=== PATIENT | female | born 1960 | race Caucasian/White ===

== ENCOUNTER 2017-03-11 04:51 | Emergency (ER) | payer BC ==
[~2017-03-11] VITALS: Ht 152.4 cm; Wt 79.4 kg
[~2017-03-11 04:51] MED LIST: LISI2.5T PO; LORA5SOL7 PO; OMEP20CA5 PO; TRIA1CAP3 PO
[2017-03-11] MEDS ORDERED: COLC0.6T34 PO (05:13)
--- NOTE | 2017-03-11 05:14 | PHYS DOC ---
Past Medical History Past Medical History: GERD, Hypertension, Other Additional Past Medical Histor: Seasonal allergies. Past Surgical History: Appendectomy, Hysterectomy, Other Additional Past Surgical Histo: Dental surgery. Alcohol Use: Occasionally Drug Use: None Adult General Chief Complaint Chief Complaint: TOE PROBLEM HPI HPI 57-year-old female presenting to the emergency department today with right monoarticular arthritis in the first metatarsal joint with pain and mild erythema. Patient denies history of gout. She denies any fevers or chills. She denies any recent trauma. The pain is moderate intermittent nonradiating worse with walking and without alleviating factors. She's been taking ibuprofen at home last took it last night. Review of systems is negative for fevers chills ankle pain or recent trauma. All other review of systems is negative unless otherwise noted in history of present illness. ED course: 57-year-old female presenting with unilateral monoarticular arthritis of the first metatarsal phalangeal joint. Symptomatology very strongly suggestive of acute gout. On physical examination the patient is mild erythema. 2 second cap refill with normal neurovascular status. Patient given colchicine in the emergency department. X-ray obtained and reviewed by myself shows no obvious fracture or deformity. Patient was in discharged home to follow -up with her primary care doctor. The patient was then discharged home in stable condition to follow up with their primary care physician over the next 2- 3 days. They were to return if their symptoms worsened or if they were concerned for any reason. [id number] discharge instructions and return precautions were given. Patient's questions were answered to their satisfaction. Patient is comfortable plan. Review of Systems Review of Systems SEE ABOVE. Current Medications Current Medications Current Medications Medications (Trade) Dose Ordered Sig/Tiffanie Start Time Stop Time Status Last Admin Dose Admin Colchicine (Colcrys) 1.2 mg 1X ONCE 03/11/17 05:15 03/11/17 05:16 DC 03/11/17 05:12 1.2 MG Allergies Allergies Allergies Coded Allergies Type Severity Reaction Last Updated Verified morphine Adverse Reaction Intermediate nausea and vomiting 01/25/15 Yes Physical Exam Physical Exam SEE ABOVE Constitutional: Well developed, well nourished, no acute distress, non-toxic appearance. [] HENT: Normocephalic, atraumatic, bilateral external ears normal, oropharynx moist, no oral exudates, nose normal. [] Eyes: PERRLA, EOMI, conjunctiva normal, no discharge. [] Neck: Normal range of motion, no tenderness, supple, no stridor. [] Cardiovascular:Heart rate regular rhythm, no murmur [] Lungs & Thorax: Bilateral breath sounds clear to auscultation [] Abdomen: Bowel sounds normal, soft, no tenderness, no masses, no pulsatile masses. [] Skin: Warm, dry, no erythema, no rash. [] Back: No tenderness, no CVA tenderness. [] Extremities: SEE ABOVE Neurologic: Alert and oriented X 3, normal motor function, normal sensory function, no focal deficits noted. [] Psychologic: Affect normal, judgement normal, mood normal. [] Current Patient Data Vital Signs Vital Signs Date Time Temp Pulse Resp B/P (MAP) Pulse Ox O2 Delivery O2 Flow Rate FiO2 03/11/17 05:02 98.4 70 18 96 Room Air 98.4 EKG EKG [] Radiology/Procedures Radiology/Procedures [] Course & Med Decision Making Course & Med Decision Making Pertinent Labs and Imaging studies reviewed. (See chart for details) [] Dragon Disclaimer Dragon Disclaimer This electronic medical record was generated, in whole or in part, using a voice recognition dictation system. Departure Departure Impression: Primary Impression: Gout attack Additional Impression: Gout Disposition: 01 HOME, SELF-CARE Condition: STABLE Referrals: BETH WHITE MD (PCP) Patient Instructions: Gout, [id number] Additional Instructions: Thank you for allowing us to participate in your care today. Followup with your primary care physician in 3 days if your symptoms do not improve. Call your Primary Doctor tomorrow and inform them of your visit today. If you do not have a primary care provider you can ask for a list of our primary care providers. Return to the emergency department you have any new or concerning findings. This should be evaluated by the primary care physician and any necessary consulting services for continued management within a few days after discharge. Return to emergency room if you have any new or concerning symptoms including but not limited to fever, chills, nausea, vomiting, intractable pain, any new rashes, chest pain, shortness of air, uncontrolled bleeding, difficulty breathing, and/or vision loss. Scripts Colchicine (COLCRYS) 0.6 Mg Tablet 1 TAB PO DAILY, #10 TAB 0 Refills Prov: CLAUDIA DSOUZA MD 03/11/17 Problem Qualifiers CLAUDIA DSOUZA MD Mar 11, 2017 05:14
[2017-03-11] MEDS ORDERED: COLCHICINE 0.6 MG TABLET PO ONE (05:15)
[2017-03-11 05:29] VITALS: BP 168/74
--- NOTE | 2017-03-11 07:31 | RAD ---
Indication pain. No history of injury. AP oblique and lateral views targeted to the left toes were obtained. No bony abnormality is seen
== END 2017-03-11 05:29 | disposition home or self-care (01) ==
LOC: ER 04:51
DX: M10.9 Gout, unspecified (principal); K21.9 Gastro-esophageal reflux disease without esophagitis; I10 Essential (primary) hypertension
CPT/HCPCS: 73660; 99284

== ENCOUNTER 2021-05-10 05:42 | Emergency (ER) | payer SELFPAY ==
[~2021-05-10] VITALS: Ht 152.4 cm; Wt 72.0 kg
[~2021-05-10 05:42] MED LIST changes: +COLC0.6T34 PO; -LISI2.5T PO; +LISI2.5T12 PO; +LORA10TA68 PO; +OMEP20TA63 PO
[2021-05-10 06:07] LABS: BASO # 0.1 x10^3/uL (0.0-0.2); BASO % 1 % (0-3); EOS # 0.2 x10^3/uL (0.0-0.7); EOS % 3 % (0-3); HEMATOCRIT 39.5 % (36.0-47.0); HEMOGLOBIN 12.6 g/dL (12.0-15.5); LYMPH # 3.6 x10^3/uL (1.0-4.8); LYMPH % 49 % (24-48); MEAN CORPUSCULAR HEMOGLOBIN 30 pg (25-35); MEAN CORPUSCULAR HGB CONC 32 g/dL (31-37); MEAN CORPUSCULAR VOLUME 93 fL (79-100); MONO # 0.6 x10^3/uL (0.0-1.1); MONO % 8 % (0-9); NEUT # 2.8 x10^3/uL (1.8-7.7); NEUT % 38 % (31-73); PLATELET COUNT 310 x10^3/uL (140-400); RED BLOOD COUNT 4.26 x10^6/uL (3.50-5.40); RED CELL DISTRIBUTION WIDTH 15.5 % (11.5-14.5); WHITE BLOOD COUNT 7.4 x10^3/uL (4.0-11.0)
--- NOTE | 2021-05-10 06:08 | PHYS DOC ---
Past Medical History Past Medical History: GERD, Hypertension, Other Additional Past Medical Histor: Seasonal allergies. (NU GUILLENTonya Burris DO) Past Surgical History: Appendectomy, Hysterectomy, Other Additional Past Surgical Histo: Dental surgery. (MIGUE GUILLEN DO) Smoking Status: Never Smoker Alcohol Use: Occasionally Drug Use: None (NU GUILLENN Fatuma NEGRO) General Adult EDM: Chief Complaint: SEIZURE HPI: HPI: Patient is a 61 year old female who presents via EMS, from home, with reported seizure-like activity. The patient's spouse is who reportedly called 911. The patient has no recollection of any seizures. She is unable to recall what occurred last night. Per EMSs report, there were told that the seizure lasted "3 minutes." On their arrival, the patient seemed to be postictal, with mild confusion. On arrival here, she reports that she does not know what happened. She is mildly confused. She is awake, alert, fully conversant, she is oriented to person and place. She has no physical complaints. She denies headache, dizziness, chest pain, dyspnea, palpitations, Olivier pain, nausea, vomiting, diarrhea. She denies urinary symptoms. No reported urine incontinence. No tongue biting reported. No fall or head injury reported. The patient reports that she believes that she had felt well yesterday. She denies any recent history of trauma or injury of any kind. She reports that several years ago she reportedly had a seizure during a colonoscopy. She reports that she was hospit alized, though she is unable to recall any details of this hospitalization. She was never placed on any anticonvulsant medication. She reports that she never followed up with any neurologist. She denies any use of alcohol, denies any recent cessation of alcohol. She denies use of benzodiazepines or recent cessation of benzodiazepines. (NU GUILLENTonya Burris DO) Review of Systems: Review of Systems: Constitutional: Denies fever or chills. [] Eyes: Denies change in visual acuity. [] HENT: Denies nasal congestion or sore throat. [] Respiratory: Denies cough or shortness of breath. [] Cardiovascular: Denies chest pain or edema. [] GI: Denies abdominal pain, nausea, vomiting, diarrhea, constipation. : Denies dysuria. Denies urine incontinence. Musculoskeletal: Denies back pain or joint pain. [] Integument: Denies rash. [] Neurologic: Denies headache, focal weakness or sensory changes. She denies dizziness. Reported seizure activity, per HPI. Psychiatric: Denies depression or anxiety. [] (MIGUE GUILLEN DO) Heart Score: C/O Chest Pain: No Risk Factors: Risk Factors: DM, Current or recent (<one month) smoker, HTN, HLP, family history of CAD, obesity. Risk Scores: Score 0 - 3: 2.5% MACE over next 6 weeks - Discharge Home Score 4 - 6: 20.3% MACE over next 6 weeks - Admit for Clinical Observation Score 7 - 10: 72.7% MACE over next 6 weeks - Early Invasive Strategies (MIGUE GUILLEN DO) C/O Chest Pain: N/A (LINETTE FATIMA MD) Allergies: Allergies: Allergies Coded Allergies Type Severity Reaction Last Updated Verified morphine Adverse Reaction Intermediate nausea and vomiting 01/25/15 Yes (MIGUE GUILLEN DO) Physical Exam: PE: Constitutional: Well developed, well nourished, no acute distress, non-toxic appearance. She is sitting up on the ED gurney, smiling, resting comfortably. HENT: Normocephalic, atraumatic, oropharynx is patent and clear. Mucous membranes are moist. No evidence of oropharyngeal, tongue, lip laceration, abrasion or bleeding. Eyes: PERRL, EOMI, conjunctiva normal, no discharge. No nystagmus. Neck: Normal range of motion, no tenderness, supple, no stridor. Trachea is midline. No tenderness. Cardiovascular: Tachycardic, regular, +2 radial and posterior tibial pulses bilaterally. No cyanosis. No peripheral edema. Lungs & Thorax: Bilateral breath sounds clear to auscultation [] Abdomen: Abdomen soft, nondistended, nontender to palpation. Skin: Warm, dry, no erythema, no rash. [] Back: No tenderness, no CVA tenderness. [] Extremities: No tenderness, no cyanosis, no clubbing, ROM intact, no edema. No calf tenderness. No limb deformity. Neurologic: She is awake, alert, oriented to person, place. She is confused about the time or events preceding her arrival here. Cranial nerves II through XII grossly intact. Speech is clear and fluent. Sensation is grossly intact. 5 out of 5 motor strength all 4 extremities. Psychologic: She is cooperative and pleasant. [] (MIGUE GUILLEN DO) EKG: EKG: EKG is interpreted at 0548 Rhythm is sinus tachycardia Rate is 132 bpm [place] is normal No STEMI (MINDYMIGUE Burris DO) Radiology/Procedures: Radiology/Procedures: [] (MINDYMIGUE Burris DO) Impression: [facility] [address] [place] [address] IMAGING REPORT Signed PATIENT: GERI CAIN ACCOUNT: [id number] : 1960 LOCATION: ER AGE: 61 SEX: F EXAM STATUS: REG ER ORD. PHYSICIAN: MIGUE GUILLEN DO REASON: seizure PROCEDURE: CT HEAD WO CONTRAST CT Head W/O Contrast: History: Reason: seizure / Spl. Instructions: / History: Comparison: January 10, 2019 Axial images were obtained without contrast. The saldana and white matter appears normal and symmetrical for the patients age. There is no mass effect, extraaxial fluid collections or hydrocephalus. There is no gross bleed. There is no focal loss of saldana-white matter distinction to suggest acute ischemia, i.e. stroke. Impression: No acute findings. RS Compliance Statement: One or more of the following individualized dose reduction techniques were utilized for this examination: 1. Automated exposure control 2. Adjustment of the mA and/or kV according to patient size 3. Use of iterative reconstruction technique Electronically signed by: Guero Avitia III, MD (05/10/2021 6:22 AM) [facility] DICTATED and SIGNED BY: GUERO AVITIA III, MD DATE: 05/10/21 [id number] (LINETTE FATIMA MD) Course & Med Decision Making: Course & Med Decision Making I have ordered a liter of IV fluids. I ordered CT head without contrast. I ordered laboratory exams. Seizure precautions are initiated. The patient continues to deny any complaints or discomfort. Her has not yet arrived in the ER to provide further history. I am transferring care to Dr. Fatima at 06 100. He will follow up on imaging studies and laboratory exams as well as the patient's clinical condition for definitive disposition. She is stable at time of transfer of care. (MIGUE GUILLEN DO) Course & Med Decision Making Received this patient from overnight physician in signout. CT head was unremarkable. Electrolytes largely unremarkable. Slight elevation in creatinine 1.2 from a baseline of 1.0. Received 1 L of IV fluids in the ED. Reevaluated the patient, and it sounds as if emotional stressors (her son-in-law is hospitalized on a ventilator) and poor sleep may be triggers for her seizure. She continues to deny any complaints and has a normal neurologic examination at this time. Her heart rate has normalized to 95. No preceding illness to suggest an infectious or metabolic cause for her seizure. No drug or etoh use. She has followed with neurologist, Dr. Bond, in the past and is willing to schedule another appointment for reevaluation. Given this is her second episode of seizures, will initiate Keppra 500 mg twice daily in the emergency department. (LINETTE FATIMA MD) Dragon Disclaimer: Dragon Disclaimer: This electronic medical record was generated, in whole or in part, using a voice recognition dictation system. (MIGUE GUILLEN DO) Departure Departure Impression: Primary Impression: Seizure-like activity Disposition: 01 HOME / SELF CARE / HOMELESS Condition: STABLE Referrals: BETH WHITE MD (PCP) CHARO BOND MD Schedule an appointment with the neurologist, Dr. Bond, regarding your seizures. Patient Instructions: Seizure Disorder, Child, Generalized Tonic-Clonic Additional Instructions: It appears that you had a seizure. Your head CT and labs were reassuring. Is important that you do not drive until you are 6 months seizure-free. I would like you to follow-up with a neurologist. Please call the office of Dr. Bond to schedule an appointment. Please start the seizure medication, levetiracetam, in the meantime. Please try to get plenty of sleep. If you develop severe headache/neck pain, fever/chills, confusion, or other new/concerning symptoms please return to the emergency department for reevaluation. Scripts Levetiracetam (KEPPRA) 500 Mg Tablet 1 TAB PO BID for 30 Days, #60 TAB 0 Refills Prov: LINETTE FATIMA MD 05/10/21 MIGUE GUILLEN DO May 10, 2021 06:08 LINETTE FATIMA MD May 10, 2021 06:30
[2021-05-10 06:14] LABS: CALCIUM 8.5 mg/dL (8.5-10.1); CREATININE 1.2 mg/dL (0.6-1.0); GFR 45.7
[2021-05-10 06:21] LABS: ALBUMIN 3.6 g/dL (3.4-5.0); MAGNESIUM 1.7 mg/dL (1.8-2.4); TOTAL BILIRUBIN 0.4 mg/dL (0.2-1.0); TOTAL PROTEIN 7.1 g/dL (6.4-8.2)
--- NOTE | 2021-05-10 06:25 | RAD ---
CT Head W/O Contrast: History: Reason: seizure / Spl. Instructions: / History: Comparison: January 10, 2019 Axial images were obtained without contrast. The saldana and white matter appears normal and symmetrical for the patients age. There is no mass effe ct, extraaxial fluid collections or hydrocephalus. There is no gross bleed. There is no focal loss of saldana-white matter distinction to suggest acute ischemia, i.e. stroke. Impression: No acute findings. PQRS Compliance Statement: One or more of the following individualized dose reduction techniques were utilized for this examinat ion: 1. Automated exposure control 2. Adjustment of the mA and/or kV according to patient size 3. Use of iterative reconstruction technique Electronically signed by: Alton Traore III, MD (05/10/2021 6:22 AM) [facility]
[2021-05-10] MEDS ORDERED: IV NORMAL SALINE 1000ML BAG 1,000 ML IV ONE (06:30)
[2021-05-10] MEDS ORDERED: LEVE500T56 PO (07:16)
[2021-05-10 07:19] VITALS: BP 116/76
--- NOTE | 2021-05-10 23:38 | EKG ---
[facility] [address] [place] [address] Test Date: 2021-05-10 Test Time: 05:48:17 Pat Name: GERI CAIN Department: Room: Gender: F Car Inspector: : 1960 Requested By: MIGUE GUILLEN Order Number: [id number] Reading MD: Vicente Huerta Measurements Intervals [place] Rate: 132 P: 30 LA: 144 QRS: 24 QRSD: 74 T: 2 QT: 294 QTc: 439 Interpretive Statements SINUS TACHYCARDIA QRS(T) CONTOUR ABNORMALITY CONSISTENT WITH INFERIOR INFARCT PROBABLY OLD ABNORMAL ECG Electronically Signed On 05-11-2021 7:18:36 LEGAL BILLING SPECIALIST by Vicente Huerta
== END 2021-05-10 07:46 | disposition home or self-care (01) ==
LOC: ER 05:42
DX: R56.9 Unspecified convulsions (principal); I10 Essential (primary) hypertension; K21.9 Gastro-esophageal reflux disease without esophagitis; Z88.5 Allergy status to narcotic agent
CPT/HCPCS: 36415; 70450; 80053; 83735; 85025; 93005; 96360; 99285; G0480; J7030